=== PATIENT | female | born 1945 | race Caucasian/White ===

== ENCOUNTER → 2023-10-11 13:34 | Outpatient (REF) | payer OTHER, SELFPAY | LOC: WDC 13:34 | PROVIDERS: ATTENDING PHYSICIAN Family Medicine | DX: Z12.31 Encounter for screening mammogram for malignant neoplasm of breast (principal) | CPT/HCPCS: 77063; 77067 ==

== ENCOUNTER → 2024-02-28 06:26 | Day surgery (SDC) | payer OTHER, SELFPAY | LOC: GI 06:26 | PROVIDERS: ATTENDING PHYSICIAN Internal Medicine | DX: Z12.11 Encounter for screening for malignant neoplasm of colon (principal); Z86.010 Personal history of colon polyps; K57.30 Diverticulosis of large intestine without perforation or abscess without bleeding; K64.9 Unspecified hemorrhoids; K63.5 Polyp of colon; K62.1 Rectal polyp | CPT/HCPCS: 45380; 88305 ==

== ENCOUNTER → 2024-10-15 07:36 | Outpatient (REF) | payer OTHER, SELFPAY | LOC: WDC 07:36 | PROVIDERS: ATTENDING PHYSICIAN Family Medicine | DX: Z12.31 Encounter for screening mammogram for malignant neoplasm of breast (principal) | CPT/HCPCS: 77063; 77067 ==

== ENCOUNTER → 2024-12-30 10:42 | Outpatient (REF) | payer OTHER, SELFPAY | LOC: RAD 10:42 | PROVIDERS: ATTENDING PHYSICIAN Family Medicine | DX: M25.562 Pain in left knee (principal) | CPT/HCPCS: 73564 ==

== ENCOUNTER → 2025-02-06 09:25 | Outpatient (REF) | payer MEDICARE, SELFPAY | LOC: RAD 09:25 | PROVIDERS: ATTENDING PHYSICIAN Family Medicine | DX: Z78.0 Asymptomatic menopausal state (principal) | CPT/HCPCS: 77080 ==

== ENCOUNTER → 2025-05-18 06:47 | Outpatient (REF) | payer MEDICARE, SELFPAY | LOC: RAD 06:47 | PROVIDERS: ATTENDING PHYSICIAN Family Medicine | DX: E11.9 Type 2 diabetes mellitus without complications (principal); E78.2 Mixed hyperlipidemia; I10 Essential (primary) hypertension | CPT/HCPCS: 93922 ==